=== PATIENT | male | born 1935 | race Caucasian/White ===

== ENCOUNTER → 2023-07-04 10:57 | Outpatient (REF) | payer OTHER, SELFPAY | LOC: PET 10:57 | PROVIDERS: ATTENDING PHYSICIAN Internal Medicine Hematology & Oncology | DX: C83.07 Small cell B-cell lymphoma, spleen (principal); C91.10 Chronic lymphocytic leukemia of B-cell type not having achieved remission | CPT/HCPCS: 78815; A9552 ==

== ENCOUNTER → 2023-08-05 10:40 | Outpatient (REF) | payer OTHER, SELFPAY | LOC: RAD 10:40 | PROVIDERS: ATTENDING PHYSICIAN Internal Medicine Hematology & Oncology; FAMILY PHYSICIAN Internal Medicine | DX: R16.1 Splenomegaly, not elsewhere classified (principal); R59.1 Generalized enlarged lymph nodes; C91.10 Chronic lymphocytic leukemia of B-cell type not having achieved remission; C83.07 Small cell B-cell lymphoma, spleen; E87.1 Hypo-osmolality and hyponatremia | CPT/HCPCS: 76700 ==

== ENCOUNTER → 2023-09-05 13:59 | Outpatient (REF) | payer OTHER, SELFPAY | LOC: HWRCS 13:59 | PROVIDERS: ATTENDING PHYSICIAN Internal Medicine Cardiovascular Disease; FAMILY PHYSICIAN Internal Medicine | DX: I48.0 Paroxysmal atrial fibrillation (principal) | CPT/HCPCS: 93306 ==

== ENCOUNTER → 2023-09-19 11:25 | Outpatient (REF) | payer OTHER, SELFPAY | LOC: DHCBC/DCA 11:25 | PROVIDERS: ATTENDING PHYSICIAN Internal Medicine Cardiovascular Disease; FAMILY PHYSICIAN Internal Medicine | DX: I25.10 Atherosclerotic heart disease of native coronary artery without angina pectoris (principal) | CPT/HCPCS: 78452; 93017; A9500; J2785 ==

== ENCOUNTER → 2023-09-23 11:22 | Outpatient (REF) | payer OTHER, SELFPAY | LOC: RAD 11:22 | PROVIDERS: ATTENDING PHYSICIAN Internal Medicine Cardiovascular Disease; FAMILY PHYSICIAN Internal Medicine | DX: Z86.73 Personal history of transient ischemic attack (TIA), and cerebral infarction without residual deficits (principal) | CPT/HCPCS: 93880 ==

== ENCOUNTER 2023-10-14 08:20 | Emergency (ER) | payer OTHER, SELFPAY ==
[2023-10-14] VITALS (15 sets, daily range): BP systolic 121–151; BP diastolic 59–79; PULSE 60–66; BMI 22.5
--- NOTE | 2023-10-14 08:48 | ED.GENMED ---
History of Present Illness
General
Chief Complaint: Fall
Source: patient
Exam Limitations: none
Time Seen by Provider: 10/14/23 08:25
Nursing documentation reviewed up to this point in time: agreed with
Travel History
Have you had any contact with someone who has COVID-19?: No
Do you have any symptoms of coronavirus? Fever > 100 degrees, chills, cough, shortness of breath, sore throat, loss of taste or smell, muscle aches, or headache?: No
History of Present Illness
History of Present Illness:
88-year-old male history of PAF on Eliquis presents after fall x 2 the past 2 days he fell 2 nights ago he fell while walking had some pain in his left hip and low back which is improved, no preceding chest pain or shortness of breath last evening
he fell again and struck his forehead on the ground, apparently was in the ER but it went away to be seen went home has had no blood in his stool blood in his urine no fever no shortness of breath, has some mild swelling on his right elbow, no
headache no nausea no vomiting no chest pains he usually walks with a walker
Past History
Past History
ED Past Medical History: Arrthythmia (Paroxysmal atrial fibrillation), CVA (TIA), Hypercholesterolemia, Hypothyroidism, Other (diverticulosis) and Other (Hyponatremia, degenerative disc disease, chronic low back pain)
ED Past Surgical History: Appendectomy, Cholecystectomy, Tonsilectomy and Other (Hernia repair)
Social History
Tobacco: Non-smoker
Alcohol: None
Drug: None
Personal:
Living: alone
Employment: Retired
Family History
Family History: CAD
Review of Systems
Review of Systems
All Other Systems: Not applicable
Constitutional: Reports no symptoms
EENT: Reports no symptoms
Respiratory: Reports no symptoms
Cardiac: Reports no symptoms
ABD/GI: Reports no symptoms
: Reports no symptoms
Musculoskeletal: Reports joint pain (Right elbow)
Neurological: Denies dizzy, headache or weakness
Psychiatric: Reports no symptoms
Phy Exam
Physical Exam
Physical Exam:
Physical Exam
General: no apparent distress, not acutely ill
Neck: No tongue bite bruising about the forehead
Heart: Regular 60 beats minute
Lungs: no acute respiratory distress. No wheeze
Abdomen: Nontender
Neuro: alert and oriented. Able to lift his arms and legs off the bed without difficulty
Skin: no rash
Psychiatric: well kept. interactive and cooperative
Extremities: Mild swelling with superficial abrasion on the right elbow
Course
Orders/Labs/Results
Orders:
Orders
10/14/23 08:46
Electrocardiogram (*1) Urgent
Reason for Study: Other
Other Reason for Exam: trauma
CT Cervical Spine W/o Iv Contr Urgent
Comment:
Reason For Exam: fall
CT Head W/o Iv Contrast Urgent
Comment:
Reason For Exam: fall
Cardiac Monitoring- Treatment ONCE
EKG- Treatment ONCE
Elbow, Right 3 View [CR Elbow - Right Min 3 Views] Urgent
Comment:
Reason For Exam: fall
10/14/23 08:47
Acetaminophen [Tylenol] 650 mg PO NOW STA
CR Pelvis - 1 Or 2 Views Urgent
Comment:
Reason For Exam: fall
10/14/23 08:49
Basic Metabolic Panel Urgent
Complete Blood Count/With Diff Urgent
10/14/23 09:47
Physical Therapy Consult [Pt Eval And Treat] Urgent
Activity Level: Out of Bed-Early Mobility
10/14/23 09:48
Orthostatic VS- Treatment ONCE
10/14/23 11:44
Case Management Consult ONCE
Case Management Consult: Discharge Planning
Abnormal Lab Results
10/14/23
08:49
RBC 3.16 L 10^6/uL
(4.70-6.10)
Hgb 10.4 L g/dL
(13.0-18.0)
Hct 29.1 L %
(39.0-52.0)
MCH 32.9 H pg
(27.0-31.0)
Plt Count 81 L 10^3/uL
(130-400)
Absolute Lymphs (auto) 3.5 H 10^3/uL
(1.2-3.4)
Absolute Monos (auto) 1.6 H 10^3/uL
(0.1-0.6)
Neutrophils % 39.0 L %
(42.2-75.2)
Monocytes % 18.5 H %
(1.7-9.3)
Sodium 130 L mmol/L
(135-145)
BUN 22 H mg/dl
(9-20)
Glucose 107 H mg/dl
(70-99)
10/14/23 08:49
10/14/23 08:49
Vital Signs
Initial and Last Documented VS:
Initial Vital Signs
Temp Pulse Resp Pulse Ox
97.9 F 62 20 97
10/14/23 08:24 10/14/23 08:24 10/14/23 08:24 10/14/23 08:24
Last Documented Vital Signs
Temp Pulse Resp BP Pulse Ox
97.9 F 61 14 143/64 96
10/14/23 08:24 10/14/23 13:00 10/14/23 12:00 10/14/23 13:00 10/14/23 09:15
MDM/Problems Addressed
Differential Diagnosis Includes:
Deconditioning slip and fall anemia electrolyte abnormality arrhythmia resolved intracerebral hemorrhage skull fracture C-spine fracture
MDM/Problems Addressed:
Fall right elbow swelling
Chronic conditions affecting care: Arrhythmia and Neurological disorder
Acute Exacerbation and/or Progression of Chronic Illness: Arrhythmia and Neurological disorder
*Radiology
Radiology exam reviewed: radiology read reviewed
*Pulse Oximetry
Patient hypoxic: no
*EKG
Interpreted by ED Provider?: Yes
Interpretation: normal
Comparison EKG: no comparison EKG present
Heart Rate: 60
Rate: normal
Rhythm: sinus
Ischemia: no ischemia
*Vice [employer] Diversity Interpretation
Rate: normal
Interpretation: normal
Heart Rate: 62
Rhythm: sinus
*Critical Care Note
Total Time (30-74mins, 75-104mins- exclusive of procedures): Not Applicable
Update Note
Update Note:
945 CTs noted formal report pending, labs noted will check orthostatics on exam the PT evaluation has been ordered
11:44 AM reviewed physical therapy, recommend case management possible SNF
2:30 PM update reviewed with case management Mariama patient excepted at [facility] awaiting insurance authorization
ED Attending Note
-
Portions of this chart may have been created with voice recognition software.� Occasional wrong word or��sound alike� substitutions may have occurred due to the inherent limitations of voice recognition software.
Discharge Plan
Departure
Prescriptions:
No Action
cyanocobalamin (vitamin B-12) 1,000 MCG tablet
1,000 mcg PO DAILY
alprazolam 0.5 MG tablet
0.75 mg PO HS
ascorbic acid (vitamin C) [Vitamin C] 500 MG tablet
1,000 mg PO DAILY
cholecalciferol (vitamin D3) 1,000 UNITS tablet
1,000 units PO DAILY
multivitamin with folic acid [Tab-A-Gallito] 1 TABLET tablet
1 tab PO DAILY
duloxetine 30 MG capsule,delayed release(DR/EC)
30 mg PO DAILY
pregabalin 75 MG capsule
75 mg PO TID
Eliquis 5 MG tablet
5 mg PO BID Qty: 60 2RF
pantoprazole 40 MG tablet,delayed release (DR/EC)
40 mg PO DAILY Qty: 30 0RF
levothyroxine 75 mcg Tablet
75 mcg PO DAILY
Saccharomyces boulardii [Florastor] 250 mg Capsule
250 mg PO BID
Probiotic 5 billion cell Capsule, Sprinkle
1 cap PO DAILY
psyllium husk [Metamucil] 0.4 gram Capsule
0.4 g PO DAILY
rosuvastatin 40 mg Capsule, Sprinkle
40 mg PO DAILY
fluoride (sodium) [Sodium Fluoride 5000 Plus] 1.1 % Cream
1 applic DENTAL DAILY
Referrals:
Stoney Connor MD [Family Provider] -
Interventions
Interventions:
*Risk Screen - Suicide Last Done: 10/14/23 08:41
*Neglect/Abuse Screening Last Done: 10/14/23 08:41
ED- Fall Risk Assessment Last Done: 10/14/23 08:41
*ED COVID-19 Vaccine History Last Done: 10/14/23 08:41
ED-Musculoskeletal Assessment Last Done: 10/14/23 08:36
ED- Neurological Assessment Last Done: 10/14/23 08:41
ED-Skin Assessment Last Done: 10/14/23 08:36
Discharge Date and Time
Print Language: FRENCH
[2023-10-14 09:03] LABS: % Basophils 0.2 % (0-2); % Eosinophils 0.1 % (0-6); % Immature Granulocytes 0.1 % (0-0.5); % Lymphocytes 42.1 % (20.5-51.1); % Monocytes 18.5 % (1.7-9.3); Absolute Lymphocytes 3.5 10^3/uL (1.2-3.4); Absolute Monocytes 1.6 10^3/uL (0.1-0.6); Absolute Neutrophils 3.3 10^3/uL (1.4-6.5); Hematocrit 29.1 % (39.0-52.0); Hemoglobin 10.4 g/dL (13.0-18.0); Mean Corp Hgb Conc. 35.7 g/dL (33.0-37.0); Mean Corpuscular Hgb 32.9 pg (27.0-31.0); Mean Corpuscular Volume 92.1 fL (80.0-94.0); Nucleated Red Blood Cells % 0 % (-); Red Blood Cell Count 3.16 10^6/uL (4.70-6.10); Red Cell Dist. Width 13.2 % (11.5-14.5); White Blood Cell Count 8.4 10^3/uL (4.8-10.8)
[2023-10-14] MEDS: TYLENOL 650 MG PO (09:19)
[2023-10-14 09:26] LABS: Blood Urea Nitrogen 22 mg/dl (9-20); Carbon Dioxide 24 mmol/L (22-30); Chloride 98 mmol/L (98-107); Estimated Creatinine Clearance 54 ml/min; Glucose 107 mg/dl (70-99); Sodium 130 mmol/L (135-145); eGFR > 60.00
[2023-10-14 10:02] LABS: Platelet Count 81 10^3/uL (130-400)
[2023-10-14 10:03] LABS: Mean Platelet Volume 9.9 fL (7.4-10.4)
--- NOTE | 2023-10-14 13:09 | CM ---
Addendum entered by Mariama Ham RN 10/14/23 14:49:
[facility]
[phone]

Addendum entered by Mariama Ham RN 10/14/23 14:47:
[facility] Authorization
[id number]
NRD 10/17
Review to be called to
[phone]
Addendum entered by Mariama Ham RN 10/14/23 14:22:
Patient has been accepted to [facility]. Patient and family are agreeable.
Addendum entered by Mariama Ham RN 10/14/23 13:30:
[facility] CM updated daughter. She will discuss with patient.
Addendum entered by Mariama Ham RN 10/14/23 13:15:
Cm sent referrals to [facility], [facility], [facility], [facility], [facility], [facility], [facility], and [facility]
Original Note:
CM was consulted for placement. Patient and daughter are agreeable to placement. CM will sent referrals via [facility].
No beds available: [facility]
Patient does not want to have referrals sent to [facility], [facility] or [facility].
CM will continue bed search.
== END 2023-10-14 15:57 ==
LOC: EMR 08:20
PROVIDERS: EMERGENCY PHYSICIAN Emergency Medicine; FAMILY PHYSICIAN Internal Medicine
DX: S00.81XA Abrasion of other part of head, initial encounter (principal); S50.311A Abrasion of right elbow, initial encounter; M25.552 Pain in left hip; M25.421 Effusion, right elbow; W19.XXXA Unspecified fall, initial encounter; Y93.01 Activity, walking, marching and hiking; I48.0 Paroxysmal atrial fibrillation; E78.00 Pure hypercholesterolemia, unspecified; E03.9 Hypothyroidism, unspecified; K57.90 Diverticulosis of intestine, part unspecified, without perforation or abscess without bleeding; G62.9 Polyneuropathy, unspecified; M48.00 Spinal stenosis, site unspecified; F41.9 Anxiety disorder, unspecified; M51.35 Other intervertebral disc degeneration, thoracolumbar region; Z79.01 Long term (current) use of anticoagulants; Z86.73 Personal history of transient ischemic attack (TIA), and cerebral infarction without residual deficits; Z90.49 Acquired absence of other specified parts of digestive tract
CPT/HCPCS: 99285; 70450; 72125; 72170; 73080; 80048; 85025; 93005

== ENCOUNTER → 2023-10-18 11:22 | Outpatient (REF) | payer OTHER, SELFPAY ==
[2023-10-18 11:49] LABS: Hematocrit 27.3 % (39.0-52.0); Hemoglobin 9.5 g/dL (13.0-18.0); Mean Corp Hgb Conc. 34.8 g/dL (33.0-37.0); Mean Corpuscular Hgb 32.3 pg (27.0-31.0); Mean Corpuscular Volume 92.9 fL (80.0-94.0); Mean Platelet Volume 9.2 fL (7.4-10.4); Platelet Count 83 10^3/uL (130-400); Red Blood Cell Count 2.94 10^6/uL (4.70-6.10); White Blood Cell Count 6.8 10^3/uL (4.8-10.8)
[2023-10-18 12:26] LABS: ALT (SGPT) 19 U/L (0-50); AST (SGOT) 27 U/L (17-59); Alkaline Phosphatase 111 U/L (38-126); Blood Urea Nitrogen 15 mg/dl (9-20); Calcium 8.3 mg/dl (8.4-10.2); Carbon Dioxide 29 mmol/L (22-30); Chloride 97 mmol/L (98-107); Glucose 91 mg/dl (70-99); Magnesium 1.8 mg/dl (1.6-2.3); Potassium 4.2 mmol/L (3.5-5.1); Sodium 130 mmol/L (135-145); Total Bilirubin 0.5 mg/dl (0.2-1.3); Total Protein 5.8 g/dl (6.3-8.2); eGFR > 60.00
[2023-10-18 12:31] LABS: Free T4 1.15 ng/dl (0.78-2.19)
[2023-10-18 12:45] LABS: TSH 4.19 uIU/ml (0.47-4.68)
== END ==
LOC: OLABWHC 11:22
PROVIDERS: ATTENDING PHYSICIAN Internal Medicine
DX: E78.5 Hyperlipidemia, unspecified (principal); E03.9 Hypothyroidism, unspecified; Z79.899 Other long term (current) drug therapy
CPT/HCPCS: 36415; 80053; 83036; 83735; 84439; 84443; 85027

== ENCOUNTER → 2023-10-25 11:05 | Outpatient (REF) | payer OTHER, SELFPAY ==
[2023-10-25 12:15] LABS: Hemoglobin 9.2 g/dL (13.0-18.0); Mean Corp Hgb Conc. 34.1 g/dL (33.0-37.0); Mean Corpuscular Hgb 32.9 pg (27.0-31.0); Mean Corpuscular Volume 96.4 fL (80.0-94.0); Mean Platelet Volume 8.8 fL (7.4-10.4); Platelet Count 84 10^3/uL (130-400); Red Cell Dist. Width 13.1 % (11.5-14.5); White Blood Cell Count 7.4 10^3/uL (4.8-10.8)
[2023-10-25 12:21] LABS: Blood Urea Nitrogen 22 mg/dl (9-20); Calcium 8.6 mg/dl (8.4-10.2); Carbon Dioxide 25 mmol/L (22-30); Chloride 99 mmol/L (98-107); Glucose 84 mg/dl (70-99); Magnesium 1.9 mg/dl (1.6-2.3); Sodium 132 mmol/L (135-145); eGFR > 60.00
== END ==
LOC: OLABWHC 11:05
PROVIDERS: ATTENDING PHYSICIAN Internal Medicine
DX: G62.9 Polyneuropathy, unspecified (principal); N31.2 Flaccid neuropathic bladder, not elsewhere classified; E87.1 Hypo-osmolality and hyponatremia
CPT/HCPCS: 36415; 80048; 83735; 85027

== ENCOUNTER → 2023-12-09 09:52 | Outpatient (REF) | payer OTHER, SELFPAY | LOC: PET 09:52 | PROVIDERS: ATTENDING PHYSICIAN Internal Medicine Hematology & Oncology | DX: C83.07 Small cell B-cell lymphoma, spleen (principal); C91.10 Chronic lymphocytic leukemia of B-cell type not having achieved remission | CPT/HCPCS: 78815; A9552 ==